=== PATIENT | female | born 1965 | race Caucasian/White ===

== ENCOUNTER 2016-10-12 09:01 | Emergency (ER) | payer MEDICAID ==
[~2016-10-12] VITALS: Ht 162.6 cm; Wt 129.0 kg
[~2016-10-12 09:01] MED LIST: ALBU8.5H5 INH; ALPR0.25 PO; ALPR2TAB2 PO; AMIT25TA PO; ASPI325T4 PO; ATOR20TA9 PO; BUTA-177 PO; DIAZ5TAB PO; DICL100T2 PO; DOCU100C50 PO; GABA800T2 PO; HYDR-3240 PO; MAGN400O4 PO; META800T21 PO; METF10002 PO; METH500T97 PO; METO25TA35 PO; METO25TA91 PO; OMEP10CA2 PO; OMEP40CA6 PO; OXYC-223 PO; OXYC-229 PO; OXYC1TAB7 PO; PREG75CA PO; PROM25SU2 PR; TIZA4CAP PO; TRAM50TA2 PO; VENL150C PO; VENL75TA PO
[2016-10-12] MEDS ORDERED: SODIUM CHLORIDE 0.9% 1,000 ML IV ONE (09:28)
[2016-10-12 09:51] LABS: HEMOGLOBIN 14.8 g/dL (11.7-16.4)
[2016-10-12 10:05] LABS: ASPARTATE AMINO TRANSFERASE 38 U/L (15-37); BLOOD UREA NITROGEN 14 mg/dL (7-18)
[2016-10-12 12:26] VITALS: BP 116/76
== END 2016-10-12 12:29 | disposition home or self-care (01) ==
LOC: ED 09:38
DX: K42.9 Umbilical hernia without obstruction or gangrene (principal); R10.33 Periumbilical pain; E11.9 Type 2 diabetes mellitus without complications; I10 Essential (primary) hypertension; E78.5 Hyperlipidemia, unspecified; Z90.710 Acquired absence of both cervix and uterus
CPT/HCPCS: 36415; 74022; 80053; 81003; 85025; 93005; 96360; 99285; J7030

== ENCOUNTER 2016-10-30 10:00 | Emergency (ER) | payer MEDICAID ==
[~2016-10-30] VITALS: Ht 162.6 cm; Wt 129.2 kg
[2016-10-30] MEDS ORDERED: SODIUM CHLORIDE 0.9% 1,000 ML IV ONE (10:25)
[2016-10-30] MEDS ORDERED: ONDANSETRON 2MG/ML, 2ML IVPush ONE (10:30)
[2016-10-30] MEDS ORDERED: SODIUM CHLORIDE FLUSH 10ML SYR IVF ONE (10:30)
[2016-10-30] MEDS ORDERED: SODIUM CHLORIDE 0.9% 1,000ML IVBOLUS ONE (10:30)
[2016-10-30] MEDS ORDERED: MORPHINE SULFATE 4 MG/ML, 1ML IVPush PRN (10:30)
[2016-10-30] MEDS ORDERED: MORPHINE SULFATE 4 MG/ML, 1ML ONE (10:33)
[2016-10-30] MEDS ORDERED: ONDANSETRON 2MG/ML, 2ML ONE (10:34)
[2016-10-30 11:01] LABS: HEMOGLOBIN 14.3 g/dL (11.7-16.4)
[2016-10-30 11:13] LABS: BLOOD UREA NITROGEN 14 mg/dL (7-18)
[2016-10-30 11:15] LABS: ASPARTATE AMINO TRANSFERASE 47 U/L (15-37)
[2016-10-30] MEDS ORDERED: OMNIPAQUE 350 MG/ML, 100ML BOTTLE ONE (12:34)
[2016-10-30 13:15] VITALS: BP 136/68
== END 2016-10-30 14:01 | disposition home or self-care (01) ==
LOC: ED 13:26
DX: K43.9 Ventral hernia without obstruction or gangrene (principal); K59.00 Constipation, unspecified; K21.9 Gastro-esophageal reflux disease without esophagitis; I10 Essential (primary) hypertension; E11.9 Type 2 diabetes mellitus without complications; E78.5 Hyperlipidemia, unspecified; M54.9 Dorsalgia, unspecified; G89.29 Other chronic pain; Z90.49 Acquired absence of other specified parts of digestive tract; Z90.710 Acquired absence of both cervix and uterus; Z88.5 Allergy status to narcotic agent
CPT/HCPCS: 36415; 74177; 80053; 81003; 83690; 85025; 96361; 96374; 96375; 99285; J2405; J7030; Q9967

== ENCOUNTER 2017-01-08 10:14 | Emergency (ER) | payer MEDICARE, MEDICAID ==
[~2017-01-08] VITALS: Ht 162.6 cm; Wt 122.4 kg
[2017-01-08] MEDS ORDERED: ALPR-475 PO (11:02)
[2017-01-08] MEDS ORDERED: CYCL-259 PO (11:02)
[2017-01-08] MEDS ORDERED: BUPR1PAT2 TD (11:02)
[2017-01-08 11:13] LABS: BLOOD UREA NITROGEN 10 mg/dL (7-18)
[2017-01-08 11:19] LABS: IS PT STATUS REG ER OR PRE ER? YES
[2017-01-08 12:06] VITALS: BP 126/98
== END 2017-01-08 12:09 | disposition home or self-care (01) ==
LOC: ED 12:03
DX: R07.89 Other chest pain (principal); F41.1 Generalized anxiety disorder; R06.4 Hyperventilation; K21.9 Gastro-esophageal reflux disease without esophagitis; Z90.49 Acquired absence of other specified parts of digestive tract; Z90.710 Acquired absence of both cervix and uterus
CPT/HCPCS: 36415; 71020; 80048; 82040; 84484; 85025; 93005; 99285

== ENCOUNTER → 2017-02-09 | Outpatient (CLI) | payer MEDICARE, MEDICAID ==
[~2017-02-09] MED LIST changes: +ALPR-475 PO; +BUPR1PAT2 TD; +CYCL-259 PO
== END | disposition home or self-care (01) ==
LOC: RAD 15:11
PROVIDERS: ATTEND Physician Assistant Surgical
DX: S09.90XA Unspecified injury of head, initial encounter (principal); X58.XXXA Exposure to other specified factors, initial encounter; Y93.89 Activity, other specified; Y92.89 Other specified places as the place of occurrence of the external cause; Y99.8 Other external cause status
CPT/HCPCS: 70450

== ENCOUNTER 2017-07-20 14:37 | Emergency (ER) | payer MEDICAID, MEDICARE ==
[~2017-07-20] VITALS: Ht 162.6 cm; Wt 124.0 kg
[~2017-07-20 14:37] MED LIST changes: +ASPI325T17 PO; -ASPI325T4 PO; -BUPR1PAT2 TD; +BUPR1PAT8 TD; -DICL100T2 PO; +DICL100T4 PO; -MAGN400O4 PO; +MAGN400O7 PO; +META-23 PO; -META800T21 PO; -OXYC-223 PO; -OXYC-229 PO; +OXYC-306 PO; +OXYC-307 PO
[2017-07-20 14:39] VITALS: BP 142/106
[2017-07-20] MEDS ORDERED: SODIUM CHLORIDE 0.9% 1,000 ML IV ONE (15:00)
[2017-07-20] MEDS ORDERED: SODIUM CHLORIDE 0.9% 1,000ML IVBOLUS ONE (15:00)
[2017-07-20] MEDS ORDERED: SODIUM CHLORIDE FLUSH 10ML SYR IVF ONE (15:00)
[2017-07-20 15:26] LABS: RAPID INFLUENZA A POSITIVE (Negative); RAPID INFLUENZA B Negative (Negative)
[2017-07-20 15:48] LABS: BASOPHILS # (AUTO) 0.01 x10^3/uL (0-0.1); BASOPHILS % (AUTO) 0 % (0-1); EOSINOPHILS # (AUTO) 0.21 x10^3/uL (0-0.4); EOSINOPHILS % (AUTO) 3 % (1-7); LYMPHOCYTES # (AUTO) 1.49 x10^3/uL (1-3.4); LYMPHOCYTES % (AUTO) 18 % (22-44); MD NO; MEAN CORPUSCULAR HEMOGLOBIN 32.4 pg (27.0-34.8); MEAN CORPUSCULAR HGB CONC 34.1 g/dL (32.4-35.8); MEAN CORPUSCULAR VOLUME 95.1 fL (80-100); MONOCYTES # (AUTO) 0.65 x10^3/uL (0.2-0.8); MONOCYTES % (AUTO) 8 % (2-9); NEUTROPHILS # (AUTO) 5.81 x10^3/uL (1.8-6.8); NEUTROPHILS % (AUTO) 71 % (42-75); PLATELET COUNT 201 x10^3/uL (130-400); RED BLOOD COUNT 4.79 x10^6/uL (3.82-5.3); RED CELL DISTRIBUTION WIDTH 13.4 % (9.6-15.2)
[2017-07-20 16:02] LABS: ALANINE AMINOTRANSFERASE 56 U/L (12-78); ALBUMIN 3.8 g/dL (3.4-5.0); ANION GAP 8 mmol/L (5-15); CALCIUM 8.9 mg/dL (8.5-10.1); CHLORIDE 106 mmol/L (98-107); CREATININE 0.66 mg/dL (0.55-1.02)
[2017-07-20 16:04] LABS: ALKALINE PHOSPHATASE 93 U/L (45-117); BILIRUBIN,TOTAL 0.6 mg/dL (0.2-1.0); TOTAL PROTEIN 7.7 g/dL (6.4-8.2)
== END 2017-07-20 18:42 | disposition home or self-care (01) ==
LOC: ED 18:25
DX: J20.8 Acute bronchitis due to other specified organisms (principal); B96.89 Other specified bacterial agents as the cause of diseases classified elsewhere; J09.X2 Influenza due to identified novel influenza A virus with other respiratory manifestations; I10 Essential (primary) hypertension; E11.9 Type 2 diabetes mellitus without complications; K21.9 Gastro-esophageal reflux disease without esophagitis; E78.5 Hyperlipidemia, unspecified; J45.909 Unspecified asthma, uncomplicated; Z90.49 Acquired absence of other specified parts of digestive tract; Z90.710 Acquired absence of both cervix and uterus
CPT/HCPCS: 36415; 74022; 80053; 85025; 87400; 93005; 99285

== ENCOUNTER 2017-10-01 13:35 | Emergency (ER) | payer MEDICARE ==
[~2017-10-01] VITALS: Ht 162.6 cm; Wt 131.6 kg
[2017-10-01] MEDS ORDERED: DIAZEPAM 5 MG TABLET PO ONE (16:00)
[2017-10-01] MEDS ORDERED: DIAZEPAM 5 MG TABLET ONE (16:02)
[2017-10-01 16:25] VITALS: BP 128/68
== END 2017-10-01 16:26 | disposition home or self-care (01) ==
LOC: ED 14:16
DX: R20.2 Paresthesia of skin (principal); M54.2 Cervicalgia; K21.9 Gastro-esophageal reflux disease without esophagitis; E78.5 Hyperlipidemia, unspecified; I10 Essential (primary) hypertension; E11.9 Type 2 diabetes mellitus without complications; Z90.49 Acquired absence of other specified parts of digestive tract; Z90.710 Acquired absence of both cervix and uterus
CPT/HCPCS: 72050; 99284; J7512

== ENCOUNTER 2018-03-28 14:28 | Inpatient (IN) | payer MEDICARE ==
[~2018-03-28] VITALS: Ht 162.6 cm; Wt 129.7 kg
[2018-03-28] MEDS ORDERED: MAALOX/HYOSCYAMINE/LIDOCAINE 45 ML BTL ONE (14:45)
[2018-03-28] MEDS ORDERED: GABA300C10 PO ×3 (14:54)
[2018-03-28] MEDS ORDERED: SODIUM CHLORIDE FLUSH 10ML SYR IVF ONE (15:00)
[2018-03-28] MEDS ORDERED: ONDANSETRON ODT 4 MG PO ONE (15:00)
[2018-03-28] MEDS ORDERED: MAALOX/HYOSCYAMINE/LIDOCAINE 45 ML BTL PO ONE (15:00)
[2018-03-28] MEDS ORDERED: NITROGLYCERIN SINGLE TAB 0.4 MG SL PRN (15:00)
[2018-03-28 15:13] LABS: BASOPHILS # (AUTO) 0.04 x10^3/uL (0-0.1); BASOPHILS % (AUTO) 1 % (0-1); EOSINOPHILS # (AUTO) 0.16 x10^3/uL (0-0.4); EOSINOPHILS % (AUTO) 3 % (1-7); LYMPHOCYTES # (AUTO) 1.99 x10^3/uL (1-3.4); LYMPHOCYTES % (AUTO) 32 % (22-44); MD NO; MEAN CORPUSCULAR HEMOGLOBIN 31.5 pg (27.0-34.8); MEAN CORPUSCULAR HGB CONC 33.6 g/dL (32.4-35.8); MEAN CORPUSCULAR VOLUME 93.6 fL (80-100); MEAN PLATELET VOLUME 8.9 fL (7.4-10.4); MONOCYTES % (AUTO) 7 % (2-9); NEUTROPHILS # (AUTO) 3.55 x10^3/uL (1.8-6.8); NEUTROPHILS % (AUTO) 58 % (42-75); PLATELET COUNT 239 x10^3/uL (130-400); RED BLOOD COUNT 4.98 x10^6/uL (3.82-5.3); RED CELL DISTRIBUTION WIDTH 13.7 % (9.6-15.2)
[2018-03-28] MEDS ORDERED: NITROGLYCERIN SINGLE TAB 0.4 MG SL ONE (15:17)
[2018-03-28] MEDS ORDERED: ONDANSETRON ODT 4 MG ONE (15:17)
[2018-03-28] MEDS ORDERED: MORPHINE SULFATE 4 MG/ML, 1ML ONE (15:18)
[2018-03-28 15:23] LABS: ALANINE AMINOTRANSFERASE 50 U/L (12-78); ALBUMIN 3.8 g/dL (3.4-5.0); ANION GAP 8 mmol/L (5-15); CALCIUM 8.6 mg/dL (8.5-10.1); CHLORIDE 109 mmol/L (98-107); CREATININE 0.78 mg/dL (0.55-1.02)
[2018-03-28] MEDS: MORPHINE SULFATE 4 MG/ML, 1ML IVPush PRN ×2 (15:23→15:32)
[2018-03-28 15:27] LABS: ALKALINE PHOSPHATASE 89 U/L (45-117); BILIRUBIN,TOTAL 0.5 mg/dL (0.2-1.0); TOTAL PROTEIN 7.6 g/dL (6.4-8.2); TROPONIN I < 0.015 ng/mL (0.000-0.045)
[2018-03-28 16:15] LABS: PROTHROMBIN TIME 10.3 Seconds (9.6-11.5)
[2018-03-28] MEDS ORDERED: LABETALOL 5MG/ML, 20ML IVPush PRN (18:30)
[2018-03-28] MEDS ORDERED: METOCLOPRAMIDE 5 MG/ML, 2ML IVPush PRN (18:30)
[2018-03-28] MEDS ORDERED: AMITRIPTYLINE 25 MG TABLET PO PRN (18:30)
[2018-03-28] MEDS ORDERED: PROMETHAZINE 25 MG/ML, 1ML IM PRN (18:30)
[2018-03-28] MEDS ORDERED: ONDANSETRON 2MG/ML, 2ML IVPush PRN (18:30)
[2018-03-28] MEDS ORDERED: morphine SULFATE 10 MG/ML, 1ML IVPush PRN (18:30)
[2018-03-28] MEDS ORDERED: hydrALAzine 20 MG/ML, 1ML IVPush PRN (18:30)
[2018-03-28] MEDS ORDERED: DICLOFENAC SODIUM 75 MG TABLET.DR PO PRN (18:30)
[2018-03-28 18:40] VITALS: BP 152/83
[2018-03-28 19:03] LABS: TROPONIN I < 0.015 ng/mL (0.000-0.045)
[2018-03-28 19:05] VITALS: BP 152/83
[2018-03-28] MEDS ORDERED: NITROGLYCERIN 0.4 MG/SPRAY SL PRN (20:00)
[2018-03-28] MEDS ORDERED: NITROGLYCERIN 0.4 MG BOTTLE (25 TABS) SL PRN (20:00)
[2018-03-28 20:01] VITALS: BP 130/87
[2018-03-28] MEDS ORDERED: NITROGLYCERIN 0.4 MG BOTTLE (25 TABS) SL ONE (20:03)
[2018-03-28] MEDS: OXYcodone/APAP 7.5/325MG TABLET PO SCH (20:04)
[2018-03-28] MEDS: GABAPENTIN 300 MG CAPSULE PO SCH (20:04)
[2018-03-28] MEDS: ONDANSETRON ODT 4 MG PO PRN (20:04)
[2018-03-28] MEDS: ENOXAPARIN 40 MG/0.4 ML SQ SCH (20:04)
[2018-03-28 20:14] VITALS: BP 131/85
[2018-03-28 20:23] VITALS: BP 113/74
[2018-03-29 01:11] LABS: TROPONIN I < 0.015 ng/mL (0.000-0.045)
[2018-03-29 01:34] VITALS: BP 109/68
[2018-03-29 05:07] LABS: BASOPHILS # (AUTO) 0.04 x10^3/uL (0-0.1); BASOPHILS % (AUTO) 1 % (0-1); EOSINOPHILS # (AUTO) 0.19 x10^3/uL (0-0.4); EOSINOPHILS % (AUTO) 3 % (1-7); LYMPHOCYTES # (AUTO) 2.65 x10^3/uL (1-3.4); LYMPHOCYTES % (AUTO) 42 % (22-44); MD NO; MEAN CORPUSCULAR HEMOGLOBIN 31.6 pg (27.0-34.8); MEAN CORPUSCULAR HGB CONC 33.7 g/dL (32.4-35.8); MEAN CORPUSCULAR VOLUME 93.7 fL (80-100); MEAN PLATELET VOLUME 9.1 fL (7.4-10.4); MONOCYTES # (AUTO) 0.49 x10^3/uL (0.2-0.8); MONOCYTES % (AUTO) 8 % (2-9); NEUTROPHILS # (AUTO) 2.96 x10^3/uL (1.8-6.8); NEUTROPHILS % (AUTO) 47 % (42-75); PLATELET COUNT 214 x10^3/uL (130-400); RED BLOOD COUNT 4.65 x10^6/uL (3.82-5.3); RED CELL DISTRIBUTION WIDTH 13.7 % (9.6-15.2)
[2018-03-29 05:11] LABS: CHLORIDE 109 mmol/L (98-107)
[2018-03-29 05:20] LABS: ALANINE AMINOTRANSFERASE 45 U/L (12-78); ALBUMIN 3.4 g/dL (3.4-5.0); ALKALINE PHOSPHATASE 76 U/L (45-117); ANION GAP 6 mmol/L (5-15); BILIRUBIN,TOTAL 0.8 mg/dL (0.2-1.0); CALCIUM 8.5 mg/dL (8.5-10.1); CREATININE 0.82 mg/dL (0.55-1.02)
[2018-03-29] MEDS: METOPROLOL TARTRATE 25 MG TABLET PO SCH ×2 (06:38→17:47)
[2018-03-29] MEDS: GABAPENTIN 300 MG CAPSULE PO SCH ×5 (06:38→21:53)
[2018-03-29 07:30] VITALS: BP 110/77
[2018-03-29 12:34] VITALS: BP 128/89
[2018-03-29] MEDS: ONDANSETRON ODT 4 MG PO PRN (13:15)
[2018-03-29] MEDS: ENOXAPARIN 40 MG/0.4 ML SQ SCH (18:06)
[2018-03-29 20:27] VITALS: BP 122/80
[2018-03-29] MEDS: OXYcodone/APAP 7.5/325MG TABLET PO SCH (21:53)
[2018-03-29] MEDS: CYCLOBENZAPRINE 10 MG TABLET PO PRN (21:56)
[2018-03-30 01:39] VITALS: BP 116/74
[2018-03-30 05:20] VITALS: BP 142/91
[2018-03-30] MEDS: METOPROLOL TARTRATE 25 MG TABLET PO SCH ×2 (05:21→18:00)
[2018-03-30 07:46] VITALS: BP 104/69
[2018-03-30] MEDS ORDERED: REGADENOSON 0.4 MG/5 ML SYRINGE ONE (08:03)
[2018-03-30] MEDS: GABAPENTIN 300 MG CAPSULE PO SCH ×3 (09:43→19:56)
[2018-03-30] MEDS: CYCLOBENZAPRINE 10 MG TABLET PO PRN ×2 (09:51→21:56)
[2018-03-30] MEDS ORDERED: GABAPENTIN 300 MG CAPSULE PO SCH (12:00)
[2018-03-30 12:48] VITALS: BP 128/86
[2018-03-30] MEDS: ENOXAPARIN 40 MG/0.4 ML SQ SCH (18:04)
[2018-03-30] MEDS ORDERED: METOCLOPRAMIDE 5 MG/ML, 2ML IVPush PRN (18:30)
[2018-03-30 19:21] VITALS: BP 117/82
[2018-03-30] MEDS: OXYcodone/APAP 7.5/325MG TABLET PO SCH (19:56)
[2018-03-31 00:11] VITALS: BP 125/86
[2018-03-31 06:00] VITALS: BP 127/82
[2018-03-31] MEDS: METOPROLOL TARTRATE 25 MG TABLET PO SCH (06:01)
[2018-03-31 07:03] VITALS: BP 101/67
[2018-03-31] MEDS: GABAPENTIN 300 MG CAPSULE PO SCH (08:38)
[2018-03-31] MEDS ORDERED: FAMO-79 PO (11:14)
[2018-03-31] MEDS ORDERED: METO5TAB57 PO (11:14)
== END 2018-03-31 12:22 | disposition home or self-care (01) | DRG 392 ==
LOC: ED 17:15 → 5SO 18:06 → INTOOBSV 18:06 → 5SO 19:57 → OBSVTOIN 03-30 14:20 → 4WST 03-30 21:07 → DCLOUNGE 03-31 12:17
PROVIDERS: ADMIT Hospitalist; ATTEND Hospitalist
DX: K21.9 Gastro-esophageal reflux disease without esophagitis (principal); Z68.42 Body mass index [BMI] 45.0-49.9, adult; E66.01 Morbid (severe) obesity due to excess calories; E11.9 Type 2 diabetes mellitus without complications; E78.5 Hyperlipidemia, unspecified; F12.90 Cannabis use, unspecified, uncomplicated; F41.1 Generalized anxiety disorder; G89.29 Other chronic pain; R19.7 Diarrhea, unspecified; R11.2 Nausea with vomiting, unspecified; I10 Essential (primary) hypertension; G56.03 Carpal tunnel syndrome, bilateral upper limbs; K57.90 Diverticulosis of intestine, part unspecified, without perforation or abscess without bleeding; R13.10 Dysphagia, unspecified; M54.9 Dorsalgia, unspecified; J45.909 Unspecified asthma, uncomplicated; M79.7 Fibromyalgia; Z82.3 Family history of stroke; Z82.49 Family history of ischemic heart disease and other diseases of the circulatory system; Z87.891 Personal history of nicotine dependence; Z87.442 Personal history of urinary calculi; Z90.710 Acquired absence of both cervix and uterus; Z98.1 Arthrodesis status; Z90.49 Acquired absence of other specified parts of digestive tract
CPT/HCPCS: 36415; 71045; 74220; 78452; 80053; 83690; 83735; 83880; 84100; 84443; 84484; 85025; 85610; 85730; 93005; 93017; 96374; 99285; G0378; J1650; J2785; Q0162; A9502; C9898; J2765